=== PATIENT | female | born 1990 | race African-American/Black ===

== ENCOUNTER 2019-11-04 16:25 | Inpatient (IN) | payer BC, OTHER ==
[2019-11-04] MEDS ORDERED: AMPICILLIN SODIUM 2 GM VIAL IVPB ONE (17:00)
[2019-11-04] MEDS ORDERED: ELECTROLYTE-148 SOLN 1,000 ML IV SCH (17:00)
[2019-11-04] MEDS ORDERED: ACETAMINOPHEN 325 MG TABLET (FP) ONE (17:05)
[2019-11-04] MEDS ORDERED: AMPICILLIN SODIUM 2 GM VIAL ONE (17:05)
[2019-11-04 18:14] VITALS: BMI 26.6
--- NOTE | 2019-11-04 18:21 | HP ---
Past Medical History - Primary Care Physician PCP:: Lorelei Wayne - Admission Chief Complaint: Fever. IUP at 40 week History of Present Illness: 28 yo G P EDC 11/03/19 EGA40.1 wk admitted due to fever and possible flu History Source: Patient, Family Member Limitations to Obtaining History: No Limitations - Past Medical History ...: 3 ...Para: 1 ...Term: 1 ...Induced : 1 ...LMP: 02/10/19 ...EDC by Sono: 11/03/19 - Past Surgical History Past Surgical History: Yes: None Hx Myomectomy: No Hx Transabdominal Cerclage: No - Smoking History Smoking history: Never smoked Have you smoked in the past 12 months: No - Alcohol/Substance Use Hx Alcohol Use: No History of Substance Use: reports: None - Social History Usual Living Arrangement: Yes: With Spouse History of Recent Travel: No Home Medications - Allergies Allergies/Adverse Reactions: Allergies Allergy/AdvReac Type Severity Reaction Status Date / Time No Known Allergies Allergy Verified 11/04/19 17:36 - Home Medications Home Medications: Ambulatory Orders Vitamins (Sjr) - 1 tab PO DAILY 11/04/19 Review of Systems - Review of Systems Constitutional: reports: Fever Eyes: reports: No Symptoms HENT: reports: No Symptoms Neck: reports: No Symptoms Cardiovascular: reports: No Symptoms Respiratory: reports: No Symptoms Gastrointestinal: reports: No Symptoms Genitourinary: reports: No Symptoms Breasts: reports: No Symptoms Reported Musculoskeletal: reports: No Symptoms Integumentary: reports: No Symptoms Neurological: reports: No Symptoms Endocrine: reports: No Symptoms Hematology/Lymphatic: reports: No Symptoms Psychiatric: reports: No Symptoms Physical Exam - Maternity Vital Signs: Vital Signs Temperature 102.9 F H 11/04/19 18:06 Pulse Rate 121 H 11/04/19 18:06 Respiratory Rate 22 H 11/04/19 18:06 Blood Pressure 140/71 11/04/19 18:06 O2 Sat by Pulse Oximetry (%) Constitutional: Yes: Well Nourished - Abdominal Exam/OB Category: II Decelerations: None - Vaginal Exam/OB Amniotic Membrane Status: Intact - Physical Exam Musculoskeletal: Yes: WNL Extremities: Yes: WNL Edema: No Hemorrhage Risk Assessment - Risk Factors Risk Score: 0 Risk Level: Low Risk Problem List - Problems (1) 40 weeks gestation of Problems reviewed: Yes Code(s): Z3A.40 - 40 WEEKS GESTATION OF (2) Fever Problems reviewed: Yes Code(s): R50.9 - FEVER, UNSPECIFIED (3) Influenza A Problems reviewed: Yes Code(s): J10.1 - FLU DUE TO OTH IDENT INFLUENZA VIRUS W OTH RESP MANIFEST Assessment/Plan IUP at 40 weeks fever Influenza A Cat 2 Plan ID consult urine culture and sens blood clture IV fluids Admit Tylenol Q4
[2019-11-04 18:48] LABS: BASO % 0.3 % (0-2.0); EOS % 0.2 % (0-4.5); HEMATOCRIT 29.7 % (32.4-45.2); HEMOGLOBIN 9.4 GM/dL (10.7-15.3); MCH 22.2 pg (25.7-33.7); MCHC 31.7 g/dl (32.0-36.0); MEAN PLT VOLUME 11.7 fl (7.5-11.1); NEUT % 83.5 % (42.8-82.8); PLATELET COUNT 145 K/MM3 (134-434); RBC 4.24 M/mm3 (3.60-5.2); RDW 15.2 % (11.6-15.6); WHITE BLOOD COUNT 7.8 K/mm3 (4.0-10.0)
[2019-11-04 19:02] LABS: PROTHROMBIN TIME (PATIENT) 11.8 SEC (9.7-13.0)
[2019-11-04] MEDS: ELECTROLYTE-148 SOLN 1,000 ML IV SCH ×2 (19:03→21:00)
[2019-11-04 19:05] LABS: ACTIVATED PTT 29.9 SECONDS (25.2-36.5)
[2019-11-04 19:13] LABS: BLOOD UREA NITROGEN 12.6 mg/dL (7-18); CALCIUM 8.4 mg/dL (8.5-10.1); CREATININE 0.5 mg/dL (0.55-1.3)
--- NOTE | 2019-11-04 19:49 | CON.ID ---
Consult - History of Present Illness History of Present Illness: 28 y.o. female at 40 wks gestation presents with c/o fever x 1 day. Pt states she began developing " a cold" one week ago with dry cough, rhinorrhea, and nasal congestion which did not resolve. Now she is having persistent fever, chills, and weakness. Noted to have fevers >102F since admission with tachycardia and mild tachypnea. C/O chest discomfort when she coughs but denies SOB. Influenza A testing is +. She denies headache/neck stiffness, abd pain/n/v/ d, urinary f/u/d, rash. No recent travel history. 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 - History Source History Provided By: Patient Limitations to Obtaining History: No Limitations - Past Medical History OPERATIONS DEVELOPER: No: Alzheimer's, CVA, Dementia, Migraine, Multiple Sclerosis, Peripheral Neuropathy, Parkinson's, Seizure, Syncope, TIA, Vertigo, Other Cardio/Vascular: No: AFIB, Aneurysm, Aortic Insufficiency, Aortic Stenosis, CAD , CHF, Deep Vein Thrombosis, HTN, Hyperlipdemia, NE, Mitral Insufficiency, Mitral Stenosis, Murmur, Pulmonary Hypertension, Other Pulmonary: No: Asthma, Bronchitis, Cancer, COPD, O2 Dependent, Pneumonia, Previously Intubated, Pulmonary Embolus, Pulmonary Fibrosis, Sleep Apnea, Other Gastrointestinal: No: Ascites, Cancer, Constipation, Crohn's Disease, Diverticulitis, Diverticulosis, Esophageal Varices, Gastritis, GERD, GI Bleed, Hemorrhoids, Hiatal Hernia, Inflamatory Bowel Disease, Irritable Bowel Disease, Pancreatitis, Peptic Ulcer Disease, Ulcerative Colitis, Other Hepatobiliary: No: Cirrhosis, Cholelithiasis, Cholecystitis, Choledocholithiasis , Hepatitis A, Hepatitis B, Hepatitis C, Other Renal/: No: Renal Failure, Renal Inusuff, BPH, Cancer, Hematuria, Hemodialysis , Neurogenic Bladder, Renal Calculi, UTI, Other Reproductive: No: Ectopic , Endometriosis, Fibroids, PID, Polycystic Ovary Syndrome, Postmenopausal, Other ...: 3 ...Para: 1 - Alcohol/Substance Use Hx Alcohol Use: No - Smoking History Smoking history: Never smoked - Social History History of Recent Travel: No Home Medications - Allergies Allergies/Adverse Reactions: Allergies Allergy/AdvReac Type Severity Reaction Status Date / Time No Known Allergies Allergy Verified 11/04/19 17:36 - Home Medications Home Medications: Ambulatory Orders Vitamins (Sjr) - 1 tab PO DAILY 11/04/19 Review of Systems - Review of Systems Constitutional: reports: Chills, Fever, Weakness. denies: No Symptoms, Diaphoresis, Lethargy, Loss of Appetite, Malaise, Night Sweats, Unintentional Wgt. Loss, Other Eyes: reports: No Symptoms. denies: Blind Spots, Blurred Vision, Double Vision , Eye Pain, Floaters, Photophobia, Recent Change in Vision, Other HENT: reports: Nasal Congestion, Throat Pain. denies: No Symptoms, Difficult Swallowing, Ear Discharge, Ear Pain, Epistaxis, Gingival Bleeding, Hearing Loss , Mouth Swelling, Ocular Prosthesis, Toothache, Ringing in Ears, Other Neck: reports: No Symptoms. denies: Decreased ROM, Lumps, Pain on Movement, Stiffness, Swollen Glands, Tenderness, Other Cardiovascular: reports: No Symptoms. denies: Chest Pain, Edema, Palpitations, Shortness of Breath, Other Respiratory: reports: Cough (dry). denies: No Symptoms, Exercise Intolerance, Hemoptysis, Orthopnea, PND, Snoring, SOB, SOB on Exertion, Wheezing, Other Gastrointestinal: denies: No Symptoms, Abdominal Pain, Bloating, Constipation, Diarrhea, Dysphagia, Indigestion, Melena, Nausea, Rectal Bleeding, Vomiting, Vomiting Blood, Other Genitourinary: reports: No Symptoms. denies: Burning, Discharge, Dysuria, Flank Pain, Frequency, Hematuria, Incontinence, Lesions, Menses, Pain, Testicular Mass, Testicular Pain, Testicular Swelling, Urgency, Vaginal Bleeding , Other Breasts: denies: No Symptoms Reported, See HPI, Breast Implants, Discharge from Nipple, Lumps, Pain, Skin Changes, Other Musculoskeletal: reports: No Symptoms. denies: Back Pain, Crepitus, Decreased ROM, Extremity Pain, Joint Pain, Joint Swelling, Muscle Pain, Muscle Cramps, Muscle Weakness, Other Integumentary: reports: No Symptoms. denies: Blister, Bruising, Change in Color , Eczema, Erythema, Incision, Lesions, Lump, Pallor, Pruritis, Rash, Wound, Other Neurological: reports: No Symptoms. denies: Change in LOC, Change in Speech, Confusion, Dizziness, Headache, Incoordination, Numbness, Parasthesia, Pre- Existing Deficit, Seizure, Syncope, Tremors, Unsteady Gait, Weakness, Other Endocrine: reports: No Symptoms. denies: Excessive Sweating, Flushing, Increased Hunger, Increased Thirst, Intolerance to Cold, Intolerance to Heat, Unexplained Weight Gain, Unexplained Weight Loss, Other Hematology/Lymphatic: reports: No Symptoms. denies: Easily Bruised, Excessive Bleeding, Swollen Glands, Other Psychiatric: denies: No Symptoms, Altered Sleep Pattern, Anxiety, Depression, Hallucinations, Panic, Paranoia, Suicidal, Other Physical Exam Vital Signs: Vital Signs Temperature 101.1 F H 11/04/19 18:40 Pulse Rate 119 H 11/04/19 18:40 Respiratory Rate 20 11/04/19 18:40 Blood Pressure 135/59 L 11/04/19 18:40 O2 Sat by Pulse Oximetry (%) Constitutional: Yes: Mild Distress Eyes: Yes: Conjunctiva Clear, EOM Intact, PERRL HENT: Yes: Atraumatic, Nasal Congestion Neck: Yes: Supple, Trachea Midline Cardiovascular: Yes: Tachycardia Respiratory: Yes: CTA Bilaterally Gastrointestinal: Yes: Normal Bowel Sounds, Soft Renal/: Yes: WNL Musculoskeletal: Yes: WNL Extremities: Yes: WNL Peripheral Pulses WNL: Yes Integumentary: Yes: WNL Neurological: Yes: Alert, Oriented Psychiatric: Yes: Alert Labs: CBC, BMP 11/04/19 18:20 11/04/19 18:20 Laboratory Tests 11/04/19 11/04/19 11/04/19 17:20 17:20 18:20 WBC 7.8 RBC 4.24 Hgb 9.4 L Hct 29.7 L MCV 70.0 L MCH 22.2 L MCHC 31.7 L RDW 15.2 Plt Count 145 MPV 11.7 H Absolute Neuts (auto) 6.5 Neutrophils % 83.5 H Lymphocytes % 8.0 Monocytes % 8.0 Eosinophils % 0.2 Basophils % 0.3 Nucleated RBC % 0 PT with INR INR PTT (Actin FS) Sodium Potassium Chloride Carbon Dioxide Anion Gap BUN Creatinine Est GFR (CKD-EPI)AfAm Est GFR (CKD-EPI)NonAf Random Glucose Calcium HIV 1&2 Antibody Screen HIV P24 Antigen Influenza A (Rapid) Positive A Influenza B (Rapid) Negative RSV Rapid Negative Blood Type Antibody Screen 11/04/19 11/04/19 11/04/19 18:20 18:20 18:20 WBC RBC Hgb Hct MCV MCH MCHC RDW Plt Count MPV Absolute Neuts (auto) Neutrophils % Lymphocytes % Monocytes % Eosinophils % Basophils % Nucleated RBC % PT with INR 11.80 INR 1.00 PTT (Actin FS) 29.9 Sodium 138 Potassium 4.0 Chloride 108 H Carbon Dioxide 22 Anion Gap 8 BUN 12.6 Creatinine 0.5 L Est GFR (CKD-EPI)AfAm 153.73 Est GFR (CKD-EPI)NonAf 132.64 Random Glucose 85 Calcium 8.4 L HIV 1&2 Antibody Screen HIV P24 Antigen Influenza A (Rapid) Influenza B (Rapid) RSV Rapid Blood Type A POSITIVE Antibody Screen Negative 11/04/19 18:20 WBC RBC Hgb Hct MCV MCH MCHC RDW Plt Count MPV Absolute Neuts (auto) Neutrophils % Lymphocytes % Monocytes % Eosinophils % Basophils % Nucleated RBC % PT with INR INR PTT (Actin FS) Sodium Potassium Chloride Carbon Dioxide Anion Gap BUN Creatinine Est GFR (CKD-EPI)AfAm Est GFR (CKD-EPI)NonAf Random Glucose Calcium HIV 1&2 Antibody Screen Negative HIV P24 Antigen Negative Influenza A (Rapid) Influenza B (Rapid) RSV Rapid Blood Type Antibody Screen Problem List - Problems (1) 40 weeks gestation of Code(s): Z3A.40 - 40 WEEKS GESTATION OF (2) Fever Code(s): R50.9 - FEVER, UNSPECIFIED Assessment/Plan 28 y.o. female at 40 wks gestation presents with c/o fever x 1 day. Pt states she began developing " a cold" one week ago with dry cough, rhinorrhea, and nasal congestion which did not resolve. Now with persistent fevers. Influenza Fever - 40 wks -- Tamiflu started, empirically on Ampicillin -- send u/a, urine and blood cultures -- continue monitor temp trend/ vitals closely -- in isolation Will follow Thank you
[2019-11-04] MEDS ORDERED: OSELTAMIVIR PHOSPHATE 75 MG CAPSULE PO SCH (20:00)
[2019-11-04] MEDS: OSELTAMIVIR PHOSPHATE 75 MG CAPSULE PO SCH (20:15)
[2019-11-04] MEDS ORDERED: ACETAMINOPHEN INJECTION 100 ML IVPB ONE (21:12)
[2019-11-04] MEDS: ACETAMINOPHEN 1000 MG/100 ML VIAL (NON FORMULARY) IVPB PRN (21:20)
[2019-11-04] MEDS: AMPICILLIN SODIUM 1 GM VIAL IVPB SCH (21:30)
[2019-11-04 22:16] LABS: PH,URINE 6.5 (5.0-8.0); URINE APPEARANCE CLEAR; URINE BILIRUBIN NEGATIVE (NEGATIVE); URINE COLOR YELLOW; URINE GLUCOSE (UA) NEGATIVE (NEGATIVE); URINE KETONE 2+ (NEGATIVE); URINE LEUK ESTERASE NEGATIVE (NEGATIVE); URINE NITRITE NEGATIVE (NEGATIVE); URINE PROTEIN TRACE (NEGATIVE)
[2019-11-04] MEDS ORDERED: AMPICILLIN SODIUM 1 GM VIAL ONE (22:19)
[2019-11-05] MEDS ORDERED: AMPICILLIN SODIUM 1 GM VIAL ONE ×6 (00:53→20:22)
[2019-11-05] MEDS: AMPICILLIN SODIUM 1 GM VIAL IVPB SCH ×6 (01:00→21:00)
[2019-11-05] MEDS: ACETAMINOPHEN 1000 MG/100 ML VIAL (NON FORMULARY) IVPB PRN ×3 (03:15→19:40)
[2019-11-05] MEDS ORDERED: ACETAMINOPHEN INJECTION 100 ML IVPB ONE ×3 (03:16→19:37)
[2019-11-05] MEDS: ELECTROLYTE-148 SOLN 1,000 ML IV SCH ×2 (07:36→17:25)
[2019-11-05] MEDS: OSELTAMIVIR PHOSPHATE 75 MG CAPSULE PO SCH ×2 (08:15→21:55)
[2019-11-05 09:17] LABS: BASO % 0.2 % (0-2.0); HEMATOCRIT 29.9 % (32.4-45.2); HEMOGLOBIN 9.5 GM/dL (10.7-15.3); LYMPH % 10.9 % (8-40); MCH 22.1 pg (25.7-33.7); MCHC 31.7 g/dl (32.0-36.0); MEAN CELL VOLUME 69.6 fl (80-96); MEAN PLT VOLUME 11.4 fl (7.5-11.1); MONO % 10.1 % (3.8-10.2); NEUT % 78.8 % (42.8-82.8); RBC 4.29 M/mm3 (3.60-5.2); RDW 15.2 % (11.6-15.6); RETICULOCYTES 1.17 % (0.5-1.5); WHITE BLOOD COUNT 6.5 K/mm3 (4.0-10.0)
[2019-11-05 09:30] LABS: URIC ACID 4.3 mg/dL (2.6-7.2)
[2019-11-05 11:02] LABS: PLATELET ESTIMATE DECREASED
--- NOTE | 2019-11-05 11:39 | PN ---
Ante-Partal Exam - Subjective Subjective: Pt improving Vital Signs: Vital Signs Temperature 99.4 F 11/05/19 11:00 Pulse Rate 108 H 11/05/19 10:00 Respiratory Rate 18 11/05/19 11:00 Blood Pressure 120/76 11/05/19 11:00 O2 Sat by Pulse Oximetry (%) Bleeding: No Headache: No Visual changes: No Right upper quadrant pain: No - Contractions Contractions: Yes Regularity: Irritability Intensity: Mild Monitor Mode: External - Exam during Labor Heart Rate: 140 Variability: Moderate Heart Rate Location: [facility] Category: I Monitor Accelerations: Present Monitor Decelerations: None Exam: Vaginal Dilatation (cm): 2 Effacement (%): 50 Amniotic Membrane Status: Intact Presentation: Vertex Station: 0 - Intrapartum Hemorrhage Risk Risk Score: 0 Risk Level: Low Risk - Assessment/Plan Assessment/Plan: Cat 1 Influenza - improving low grade temp Plan tamiflu continue tylenol continue observation ID monitoring will induce in 5-7 days
[2019-11-05 11:41] LABS: PLATELET COUNT 139 K/MM3 (134-434)
--- NOTE | 2019-11-05 15:45 | PN ---
Progress Note, Physician History of Present Illness: stable starting to feel better - Current Medication List Current Medications: Active Medications Acetaminophen (Ofirmev Injection -) 1,000 mg IVPB Q6H PRN PRN Reason: FEVER Last Admin: 11/05/19 12:40 Dose: 1,000 mg Ampicillin Sodium (Ampicillin -) 1 gm IVPB Q4H [facility] Last Admin: 11/05/19 13:20 Dose: 1 gm Parenteral Electrolytes (Plasma-Lyte 148 -) 1,000 mls @ 125 mls/hr IV ASDIR ANGELI Last Admin: 11/05/19 07:36 Dose: 125 mls/hr Oseltamivir Phosphate (Tamiflu -) 75 mg PO Q12H [facility] Stop: 11/09/19 19:39 Last Admin: 11/05/19 08:15 Dose: 75 mg - Objective Vital Signs: Vital Signs Temperature 97.9 F 11/05/19 14:00 Pulse Rate 96 H 11/05/19 14:00 Respiratory Rate 18 11/05/19 14:00 Blood Pressure 124/61 11/05/19 14:00 O2 Sat by Pulse Oximetry (%) Constitutional: Yes: No Distress, Calm Cardiovascular: Yes: S1, S2 Respiratory: Yes: Regular, CTA Bilaterally Gastrointestinal: Yes: Normal Bowel Sounds, Soft Musculoskeletal: Yes: WNL Extremities: Yes: WNL Neurological: Yes: Alert, Oriented Psychiatric: Yes: Alert, Oriented Labs: CBC, BMP 11/05/19 08:50 11/04/19 18:20 INR, PTT INR 1.00 (0.83-1.09) 11/04/19 18:20 Assessment/Plan Problem List - Problems (1) 40 weeks gestation of Code(s): Z3A.40 - 40 WEEKS GESTATION OF (2) Fever Code(s): R50.9 - FEVER, UNSPECIFIED Assessment/Plan 28 y.o. female at 40 wks gestation presents with c/o fever x 1 day. Pt states she began developing " a cold" one week ago with dry cough, rhinorrhea, and nasal congestion which did not resolve. Now with persistent fevers. Influenza Fever - 40 wks continue current mgmt complete tamiflu course if patient stable can stop abx
[2019-11-06] MEDS ORDERED: AMPICILLIN SODIUM 1 GM VIAL ONE ×2 (00:46→04:07)
[2019-11-06] MEDS: AMPICILLIN SODIUM 1 GM VIAL IVPB SCH ×3 (01:00→10:47)
[2019-11-06] MEDS: ELECTROLYTE-148 SOLN 1,000 ML IV SCH (04:00)
[2019-11-06 06:51] LABS: BASO % 0.7 % (0-2.0); EOS % 0.2 % (0-4.5); HEMATOCRIT 31.5 % (32.4-45.2); HEMOGLOBIN 9.9 GM/dL (10.7-15.3); LYMPH % 25.4 % (8-40); MCHC 31.3 g/dl (32.0-36.0); MEAN CELL VOLUME 70.3 fl (80-96); MEAN PLT VOLUME 11.4 fl (7.5-11.1); MONO % 8.2 % (3.8-10.2); NEUT % 65.5 % (42.8-82.8); PLATELET COUNT 138 K/MM3 (134-434); RBC 4.49 M/mm3 (3.60-5.2); RDW 15.2 % (11.6-15.6); WHITE BLOOD COUNT 4.3 K/mm3 (4.0-10.0)
[2019-11-06] MEDS: OSELTAMIVIR PHOSPHATE 75 MG CAPSULE PO SCH (08:15)
[2019-11-06] MEDS ORDERED: ACETAMINOPHEN 325 MG TABLET (FP) PO PRN (09:26)
[2019-11-06 09:52] LABS: ANISOCYTOSIS 1+; MACROCYTOSIS 0; PLATELET ESTIMATE NORMAL
--- NOTE | 2019-11-06 17:37 | PN ---
Progress Note, Physician History of Present Illness: stable no new issues - Current Medication List Current Medications: Active Medications Acetaminophen (Tylenol -) 650 mg PO Q4H PRN PRN Reason: FEVER Parenteral Electrolytes (Plasma-Lyte 148 -) 1,000 mls @ 125 mls/hr IV ASDIR ANGELI Last Admin: 11/06/19 04:00 Dose: 125 mls/hr Oseltamivir Phosphate (Tamiflu -) 75 mg PO Q12H [facility] Stop: 11/09/19 19:39 Last Admin: 11/06/19 08:15 Dose: 75 mg - Objective Vital Signs: Vital Signs Temperature 98.0 F 11/06/19 11:35 Pulse Rate 84 11/06/19 11:35 Respiratory Rate 20 11/06/19 11:35 Blood Pressure 132/84 11/06/19 11:35 O2 Sat by Pulse Oximetry (%) Constitutional: Yes: No Distress, Calm Cardiovascular: Yes: S1, S2 Respiratory: Yes: Regular, CTA Bilaterally Gastrointestinal: Yes: Normal Bowel Sounds, Soft Musculoskeletal: Yes: WNL Extremities: Yes: WNL Neurological: Yes: Alert, Oriented Psychiatric: Yes: Alert, Oriented Labs: CBC, BMP 11/06/19 06:20 11/04/19 18:20 INR, PTT INR 1.00 (0.83-1.09) 11/04/19 18:20 Assessment/Plan Problem List - Problems (1) 40 weeks gestation of Code(s): Z3A.40 - 40 WEEKS GESTATION OF (2) Fever Code(s): R50.9 - FEVER, UNSPECIFIED Assessment/Plan 28 y.o. female at 40 wks gestation presents with c/o fever x 1 day. Pt states she began developing " a cold" one week ago with dry cough, rhinorrhea, and nasal congestion which did not resolve. Now with persistent fevers. Influenza Fever - 40 wks plan no abx finish tamiflu course
[2019-11-06 18:54] VITALS: BP 120/84; PULSE 72; TEMP 98.4
--- NOTE | 2019-11-21 22:08 | DS ---
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 Vital Signs: Vital Signs Temperature 98.4 F 11/06/19 18:00 Pulse Rate 72 11/06/19 18:00 Respiratory Rate 20 11/06/19 18:00 Blood Pressure 120/84 11/06/19 18:00 O2 Sat by Pulse Oximetry (%) Constitutional: Yes: Well Nourished, No Distress Gastrointestinal: Yes: WNL, Soft, Other ( 40 cm) Breast(s): Yes: WNL Labs: CBC, BMP 11/06/19 06:20 11/04/19 18:20 Delivery, Single - Feeding Plan Initial Plan: Elected not to breastfeed exclusively throughout hospitalization Discharge Summary Problems reviewed: Yes Reason For Visit: INDUCTION OF LABOR Influenza A Fever Procedures: Principal: IV fluids Hospital Course: IV Fluids Tylenol Tamaflu Condition: Good - Instructions Diet, Activity, Other Instructions: PT INSTRUCTED TO CALL MD IF FEVER, VAGINAL BLEEDING, UTERINE CONTRATIONS, DECREASED MOVEMENT, OR WATER BREAKS. PT ALSO INSTRUCTED TO RETURN TO L&D ON Tuesday11/11/19 FOR INDUCTION OF LABOR IF UNDELIVERED. PT TO TAKE TAMIFLU PRESCRIBED BY DR WAYNE. Referrals: Lorelei Wayne MD [Staff Physician] - Disposition: HOME - Home Medications Comprehensive Discharge Medication List: Ambulatory Orders Vitamins (Sjr) - 1 tab PO DAILY 11/04/19 Ascorbic Acid [Vitamin C] 500 mg PO PRN 11/09/19 Labetalol HCl [Normodyne -] 200 mg PO TID #60 tablet 11/12/19 Nifedipine ER [Procardia Xl -] 30 mg PO DAILY #30 tab.er.24 11/12/19
== END 2019-11-06 19:05 | disposition home or self-care (01) | DRG 833 ==
LOC: JLDR 16:25 → J3W 11-06 11:17
PROVIDERS: ADMIT Obstetrics & Gynecology; ATTEND Obstetrics & Gynecology
DX: O98.513 Other viral diseases complicating pregnancy, third trimester (principal); J10.1 Influenza due to other identified influenza virus with other respiratory manifestations
CPT/HCPCS: 36415; 80048; 81003; 84450; 84460; 84550; 85025; 85044; 85610; 85730; 86593; 86850; 86900; 86901; 87040; 87086; 87389; 87804; 87807; J0131

== ENCOUNTER 2019-11-09 10:55 | Inpatient (IN) | payer BC, OTHER ==
[2019-11-09 12:25] LABS: BASO % 0.7 % (0-2.0); EOS % 0.4 % (0-4.5); HEMATOCRIT 35.4 % (32.4-45.2); HEMOGLOBIN 11.2 GM/dL (10.7-15.3); LYMPH % 19.3 % (8-40); MCH 22.2 pg (25.7-33.7); MCHC 31.6 g/dl (32.0-36.0); MEAN CELL VOLUME 70.2 fl (80-96); MEAN PLT VOLUME 11.4 fl (7.5-11.1); MONO % 5.7 % (3.8-10.2); NEUT % 73.9 % (42.8-82.8); PLATELET COUNT 186 K/MM3 (134-434); RBC 5.04 M/mm3 (3.60-5.2); RDW 15.1 % (11.6-15.6); WHITE BLOOD COUNT 9.2 K/mm3 (4.0-10.0)
[2019-11-09 12:29] LABS: INR 0.85 (0.83-1.09)
[2019-11-09 12:32] LABS: ACTIVATED PTT 32.6 SECONDS (25.2-36.5)
[2019-11-09] MEDS ORDERED: PROMETHAZINE HCL 25 MG/1 ML VIAL IVPUSH ONE (12:34)
[2019-11-09] MEDS ORDERED: BUTORPHANOL TARTRATE 1 MG/ML VIAL IVPB ONE (12:34)
--- NOTE | 2019-11-09 12:34 | HP ---
Past Medical History - Primary Care Physician PCP:: Lorelei Wayne - Admission Chief Complaint: Labor at 40 + week. Hx of influenza History of Present Illness: 28 yo P1 egg 40. 6 weeks admitted in active labor no rom no bleeding + abd due to contractions History Source: Patient Limitations to Obtaining History: No Limitations - Past Medical History ...: 2 ...Para: 1 - Past Surgical History Past Surgical History: Yes: None Hx Myomectomy: No Hx Transabdominal Cerclage: No - Smoking History Smoking history: Never smoked Have you smoked in the past 12 months: No - Alcohol/Substance Use Hx Alcohol Use: No History of Substance Use: reports: None - Social History Usual Living Arrangement: Yes: With Spouse History of Recent Travel: No Home Medications - Allergies Allergies/Adverse Reactions: Allergies Allergy/AdvReac Type Severity Reaction Status Date / Time No Known Allergies Allergy Verified 11/09/19 13:08 - Home Medications Home Medications: Ambulatory Orders Vitamins (Sjr) - 1 tab PO DAILY 11/04/19 Ascorbic Acid [Vitamin C] 500 mg PO PRN 11/09/19 Review of Systems - Review of Systems Constitutional: reports: No Symptoms Eyes: reports: No Symptoms HENT: reports: No Symptoms Neck: reports: No Symptoms Cardiovascular: reports: No Symptoms Respiratory: reports: No Symptoms Gastrointestinal: reports: Abdominal Pain Genitourinary: reports: No Symptoms Breasts: reports: No Symptoms Reported Musculoskeletal: reports: No Symptoms Integumentary: reports: No Symptoms Neurological: reports: No Symptoms Endocrine: reports: No Symptoms Hematology/Lymphatic: reports: No Symptoms Psychiatric: reports: No Symptoms Physical Exam - Maternity Constitutional: Yes: Well Nourished, No Distress Cardiovascular: Yes: WNL Lungs: Clear to auscultation Breast(s): Yes: WNL - Abdominal Exam/OB Number of Fetuses: Single Presentation: Vertex Contractions: Yes Monitor Mode: External Category: I Accelerations: Non-Uniform Decelerations: None - Vaginal Exam/OB Dilatation (cm): 3 Effacement (%): 80 Amniotic Membrane Status: Intact Presentation: Vertex/Position Station: -1 - Physical Exam Musculoskeletal: Yes: WNL Extremities: Yes: WNL Edema: No Psychiatric: Yes: WNL, Alert, Oriented Hemorrhage Risk Assessment - Risk Factors Risk Score: 0 Risk Level: Low Risk Problem List - Problems (1) Post-dates Problems reviewed: Yes Code(s): O48.0 - POST-TERM Qualifiers: Post-term type: 40-42 weeks gestation Qualified Code(s): O48.0 - Post-term Assessment/Plan IUP at 40. 6 week SP influenza 5 days ago Labor Plan admit to LD
[2019-11-09] MEDS ORDERED: ELECTROLYTE-148 SOLN 1,000 ML IV SCH (12:45)
[2019-11-09 12:49] LABS: BLOOD UREA NITROGEN 12.5 mg/dL (7-18); CALCIUM 8.8 mg/dL (8.5-10.1); CREATININE 0.5 mg/dL (0.55-1.3); POTASSIUM 4.3 mmol/L (3.5-5.1)
[2019-11-09 13:28] VITALS: BMI 26.6
[2019-11-09 14:17] LABS: PLATELET ESTIMATE NORMAL
[2019-11-09] MEDS ORDERED: OXYTOCIN 30 UNITS in 0.9% NS 30 UNIT/500 ML INFUS.BAG IVPB ONE (14:23)
[2019-11-09] MEDS ORDERED: OXYTOCIN 30 UNITS in 0.9% NS 30 UNIT/500 ML INFUS.BAG IVPB SCH (15:00)
[2019-11-09] MEDS ORDERED: NALOXONE HCL 0.4 MG/ML VIAL IVPUSH PRN (15:39)
[2019-11-09] MEDS ORDERED: FENTANYL/BUPIVACAINE/NS/PF - PCEA - 50 ML DISP.SYRIN EP ONE (15:44)
[2019-11-09] MEDS ORDERED: FENTANYL/BUPIVACAINE/NS/PF - PCEA - 50 ML DISP.SYRIN EP SCH ×2 (15:45→16:24)
--- NOTE | 2019-11-09 16:03 | PN ---
Ante-Partal Exam - Subjective Subjective: Pt on pitocin pt desires epidural Vital Signs: Vital Signs Temperature 98.3 F 11/09/19 12:00 Pulse Rate 69 11/09/19 14:30 Respiratory Rate 18 11/09/19 14:30 Blood Pressure 154/88 11/09/19 14:30 O2 Sat by Pulse Oximetry (%) Bleeding: No Headache: No Visual changes: No Right upper quadrant pain: No - Contractions Contractions: Yes Regularity: Regular Monitor Mode: External - Exam during Labor Category: I Monitor Decelerations: None Exam: Vaginal Dilatation (cm): 4 Amniotic Membrane Status: Ruptured Amniotic Fluid: Clear Presentation: Vertex Station: -1 - Assessment/Plan Assessment/Plan: Active labor 40 + weeks Plan epidural
[2019-11-09] MEDS ORDERED: OXYTOCIN 20 UNITS in 0.9% NS 20 UNIT/1,000 ML INFUS.BAG IV ONE ×2 (16:16→20:25)
[2019-11-09] MEDS ORDERED: LIDOCAINE HCL 1% PRESERVATIVE FREE - 30ML VIAL ONE (16:16)
--- NOTE | 2019-11-09 16:21 | PN ---
Ante-Partal Exam - Subjective Vital Signs: Vital Signs Temperature 98.3 F 11/09/19 12:00 Pulse Rate 84 11/09/19 16:00 Respiratory Rate 18 11/09/19 16:00 Blood Pressure 144/90 11/09/19 16:00 O2 Sat by Pulse Oximetry (%) 99 11/09/19 16:00 - Exam during Labor Category: I Monitor Accelerations: Present Monitor Decelerations: None Exam: Vaginal Dilatation (cm): anteri Amniotic Fluid: Clear Presentation: Vertex Station: 0 - Intrapartum Hemorrhage Risk Risk Score: 0 Risk Level: Low Risk - Assessment/Plan Assessment/Plan: Anterior lip active labor Plan anticipate vaginal delivery
[2019-11-09] MEDS ORDERED: BISACODYL 10 MG SUPP.RECT RC PRN (16:22)
[2019-11-09] MEDS ORDERED: WITCH HAZEL 50% (TUCKS) 40 PAD/JAR PAD TP PRN (16:22)
[2019-11-09] MEDS ORDERED: METHYLERGONOVINE MALEATE 0.2 MG/1 ML AMP IM PRN (16:22)
[2019-11-09] MEDS ORDERED: IBUPROFEN 600 MG TABLET (FP) PO PRN (16:22)
[2019-11-09] MEDS ORDERED: BENZOCAINE 20% 57 GM BOTTLE TP PRN (16:22)
[2019-11-09] MEDS ORDERED: BENZOCAINE 28 GM HEMORRHOIDAL OINTMENT PR PRN (16:22)
[2019-11-09] MEDS ORDERED: OXYTOCIN 20 UNITS in 0.9% NS 20 UNIT/1,000 ML INFUS.BAG IV SCH (16:30)
--- NOTE | 2019-11-09 16:59 | PN ---
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
[2019-11-09] MEDS ORDERED: LABETALOL HCL 200 MG TABLET (FP) ONE (17:32)
[2019-11-09] MEDS ORDERED: LABETALOL HCL 200 MG TABLET (FP) PO ONE (18:15)
[2019-11-09] MEDS: LABETALOL HCL 200 MG TABLET (FP) PO SCH (21:04)
[2019-11-09] MEDS: ACETAMINOPHEN 325 MG TABLET (FP) PO PRN (22:19)
[2019-11-10] MEDS: LABETALOL HCL 200 MG TABLET (FP) PO SCH ×3 (05:29→21:19)
[2019-11-10] MEDS: ACETAMINOPHEN 325 MG TABLET (FP) PO PRN ×4 (05:29→20:40)
[2019-11-10 07:40] LABS: BASO % 0.4 % (0-2.0); EOS % 0.1 % (0-4.5); HEMATOCRIT 29.9 % (32.4-45.2); HEMOGLOBIN 9.5 GM/dL (10.7-15.3); LYMPH % 24.9 % (8-40); MCH 22.3 pg (25.7-33.7); MEAN CELL VOLUME 69.9 fl (80-96); NEUT % 67.6 % (42.8-82.8); PLATELET COUNT 131 K/MM3 (134-434); RBC 4.27 M/mm3 (3.60-5.2); RDW 15.2 % (11.6-15.6); WHITE BLOOD COUNT 10.6 K/mm3 (4.0-10.0)
[2019-11-10] MEDS ORDERED: FLU VACCINE QUAD 60 MCG/0.5 ML (MDV 19-20) IM ONE (10:00)
[2019-11-10] MEDS ORDERED: FLU VACC QS2019-20(6MOS UP)/PF 60 MCG/0.5 ML SYRINGE IM ONE (10:00)
[2019-11-10] MEDS ORDERED: DIPHTH,PERTUSS(ACELL),TET 0.5 ML DISP.SYRIN IM ONE (10:00)
[2019-11-10 10:33] LABS: PLATELET ESTIMATE DECREASED
[2019-11-10] MEDS ORDERED: SODIUM CHLORIDE NASAL SPRAY 44 ML BOTTLE NS PRN (15:28)
--- NOTE | 2019-11-10 22:43 | PN ---
Progress Note (SOAP) - Subjective Chief Complaint: Pt doing well Pt with elevated BP on Labetalol 200mg TID - Current Medications Current Medications: Active Medications Acetaminophen (Tylenol -) 650 mg PO Q4H PRN PRN Reason: FEVER Last Admin: 11/10/19 20:40 Dose: 650 mg Benzocaine (Americaine 20% [place] -) 1 spray TP PRN PRN PRN Reason: Pain - Topical Benzocaine (Americaine Ointment -) 1 applic DE PRN PRN PRN Reason: Pain - Topical Bisacodyl (Dulcolax Suppository -) 10 mg RC PRN PRN PRN Reason: CONSTIPATION Fentanyl/Bupivacaine/Sodium Chlor (Bupivicaine 0.125%/Fentanyl 2mcg/Ml Pcea) 50 ml EP [facility]; Protocol Last Admin: 11/09/19 17:26 Dose: Not Given Parenteral Electrolytes (Plasma-Lyte 148 -) 1,000 mls @ 125 mls/hr IV [facility]IR [facility] Last Admin: 11/09/19 13:00 Dose: 125 mls/hr Oxytocin/Sodium Chloride (Normal Saline+30 Units Oxytocin) 30 unit in 500 mls @ 1 mls/hr IVPB TITR [facility]; Protocol Last Titration: 11/09/19 15:50 Dose: 0.18 unit/hr, 3 mls/hr Oxytocin/Sodium Chloride (Normal Saline+20 Units Oxytocin -) 20 unit in 1,000 mls @ 125 mls/hr IV ASDIR ANGELI Last Admin: 11/09/19 17:26 Dose: 125 mls/hr Ibuprofen (Motrin -) 600 mg PO Q4H PRN PRN Reason: PAIN LEVEL 1 - 3 Labetalol HCl (Normodyne -) 200 mg PO TID ANGELI Last Admin: 11/10/19 21:19 Dose: 200 mg Methylergonovine Maleate (Methergine Injection -) 0.2 mg IM Q4H PRN PRN Reason: EXCESSIVE BLEEDING Naloxone HCl (Narcan -) 0.4 mg IVPUSH PRN PRN PRN Reason: Sedation Sodium Chloride ([place] Nasal [place] -) 1 spray NS BID PRN PRN Reason: NASAL CONGESTION Last Admin: 11/10/19 22:11 Dose: 1 spray Witch Aruna/Glycerin (Tucks Pads -) 1 pad TP PRN PRN PRN Reason: Pain - Topical - Objective Vital Signs: Vital Signs Temperature 98.1 F 11/10/19 21:23 Pulse Rate 69 11/10/19 21:23 Respiratory Rate 20 11/10/19 21:23 Blood Pressure 155/98 11/10/19 21:23 O2 Sat by Pulse Oximetry (%) 100 11/09/19 17:15 Constitutional: Yes: Well Nourished, No Distress Gastrointestinal: Yes: WNL, Soft ....Post : Yes: Uterus firm, Uterus non-tender Breast(s): Yes: WNL Extremities: Yes: WNL Edema: No Neurological: Yes: WNL, Alert, Oriented Labs Lab Results: CBCD WBC 10.6 K/mm3 (4.0-10.0) H 11/10/19 07:25 RBC 4.27 M/mm3 (3.60-5.2) 11/10/19 07:25 Hgb 9.5 GM/dL (10.7-15.3) L 11/10/19 07:25 Hct 29.9 % (32.4-45.2) L D 11/10/19 07:25 MCV 69.9 fl (80-96) L 11/10/19 07:25 MCHC 32.0 g/dl (32.0-36.0) 11/10/19 07:25 RDW 15.2 % (11.6-15.6) 11/10/19 07:25 Plt Count 131 K/MM3 (134-434) L D 11/10/19 07:25 MPV 11.0 fl (7.5-11.1) 11/10/19 07:25 CMP Sodium 140 mmol/L (136-145) 11/09/19 11:37 Potassium 4.3 mmol/L (3.5-5.1) 11/09/19 11:37 Chloride 110 mmol/L (98-107) H 11/09/19 11:37 Carbon Dioxide 23 mmol/L (21-32) 11/09/19 11:37 Anion Gap 7 MMOL/L (8-16) L 11/09/19 11:37 BUN 12.5 mg/dL (7-18) 11/09/19 11:37 Creatinine 0.5 mg/dL (0.55-1.3) L 11/09/19 11:37 Random Glucose 73 mg/dL (74-106) L 11/09/19 11:37 Calcium 8.8 mg/dL (8.5-10.1) 11/09/19 11:37 Problem List - Problems (1) Post-dates Problems reviewed: Yes Code(s): O48.0 - POST-TERM Qualifiers: Post-term type: 40-42 weeks gestation Qualified Code(s): O48.0 - Post-term (2) NVD (normal vaginal delivery) Code(s): O80 - ENCOUNTER FOR FULL-TERM UNCOMPLICATED DELIVERY (3) Gestational hypertension Code(s): O13.9 - GESTATIONAL HTN W/O SIGNIFICANT PROTEINURIA, UNSP TRIMESTER Assessment/Plan SP gestational hypertension Plan labetalol 200 mg TID renal consult PET labs in AM
[2019-11-11] MEDS: ACETAMINOPHEN 325 MG TABLET (FP) PO PRN ×4 (00:59→17:54)
[2019-11-11] MEDS: LABETALOL HCL 200 MG TABLET (FP) PO SCH ×3 (05:49→22:19)
[2019-11-11 07:50] LABS: RETICULOCYTES 1.61 % (0.5-1.5)
[2019-11-11 08:12] LABS: URIC ACID 5.6 mg/dL (2.6-7.2)
--- NOTE | 2019-11-11 10:44 | CON.NEP ---
Consult Consult Specialty:: Nephrology Reason for Consultation:: Gestational Hypertension - History of Present Illness Chief Complaint: none History of Present Illness: This is a 28 year old woman with no significant medical history who was induced and delivered on 11/09. She does not have a history of hypertension but has had blood pressures above 160 requiring labetalol. She had the flu recently but did not take any decongestants. Currently feels well. This is her second full term . - History Source Limitations to Obtaining History: No Limitations - Past Surgical History Past Surgical History: Yes: None - Alcohol/Substance Use Hx Alcohol Use: No History of Substance Use: reports: None - Smoking History Smoking history: Never smoked Have you smoked in the past 12 months: No - Social History History of Recent Travel: No Home Medications - Allergies Allergies/Adverse Reactions: Allergies Allergy/AdvReac Type Severity Reaction Status Date / Time No Known Allergies Allergy Verified 11/09/19 13:08 - Home Medications Home Medications: Ambulatory Orders Vitamins (Sjr) - 1 tab PO DAILY 11/04/19 Ascorbic Acid [Vitamin C] 500 mg PO PRN 11/09/19 Review of Systems - Review of Systems Constitutional: reports: No Symptoms Eyes: reports: No Symptoms HENT: reports: No Symptoms Neck: reports: No Symptoms Cardiovascular: reports: No Symptoms Respiratory: reports: No Symptoms Gastrointestinal: reports: No Symptoms Genitourinary: reports: No Symptoms Breasts: reports: No Symptoms Reported Musculoskeletal: reports: No Symptoms Integumentary: reports: No Symptoms Neurological: reports: No Symptoms Nephrology Consult - Height Height: 5 ft 7 in - Weight Weight: 170 lb - BMI Body Mass Index (BMI): 26.6 - Lab Results CBC,BMP: CBC, BMP 11/09/19 11:37 Anion Gap: Anion Gap Anion Gap 7 MMOL/L (8-16) L 11/09/19 11:37 - Physical Examination Vital Signs: Vital Signs Temperature 98.1 F 11/11/19 05:55 Pulse Rate 57 L 11/11/19 05:55 Respiratory Rate 20 11/11/19 05:55 Blood Pressure 161/93 11/11/19 05:55 O2 Sat by Pulse Oximetry (%) 100 11/09/19 17:15 Constitutional: Yes: Well Nourished, No Distress, Calm Eyes: Yes: Conjunctiva Clear HENT: Yes: Atraumatic, Normocephalic Neck: Yes: Supple, Trachea Midline Cardiovascular: Yes: Regular Rate and Rhythm Respiratory: Yes: Regular, CTA Bilaterally Gastrointestinal: Yes: Normal Bowel Sounds Renal/: Yes: WNL Musculoskeletal: Yes: WNL Edema: Yes Neurological: Yes: Alert, Oriented Psychiatric: Yes: Alert, Oriented Assessment/Plan IMPRESSION Gestational Hypertension- has a normal creat and only trace proteinuria anemia post delivery- bleeding vs dilution mild thrombocytopenia PLAN Recent BP was reported to be in the 140's over 80s while on labetalol for now would not add medications would repeat cbc today to ensure her hgb is not dropping also repeat urine tests- for proteinuria If BP remains elevated would add nifedipine xl 30 mg daily await haptoglobin, LFTs only mildly elevated If not hemolyzing, BP around or below 140/90 and platelets stable can consider dc from renal perspective MV
[2019-11-11 11:27] LABS: HEMATOCRIT 31.1 % (32.4-45.2); HEMOGLOBIN 9.9 GM/dL (10.7-15.3); MCH 22.2 pg (25.7-33.7); MCHC 31.7 g/dl (32.0-36.0); RBC 4.45 M/mm3 (3.60-5.2); RDW 15.2 % (11.6-15.6); WHITE BLOOD COUNT 8.5 K/mm3 (4.0-10.0)
[2019-11-11 11:30] LABS: PLATELET COUNT 138 K/MM3 (134-434)
[2019-11-11 11:31] LABS: PLATELET ESTIMATE SLT DECREASE
[2019-11-11] MEDS: NIFEdipine E.R. 30 MG TABLET (FP) PO SCH (11:47)
[2019-11-11 13:47] LABS: MEAN PLT VOLUME 10.3 fl (7.5-11.1)
--- NOTE | 2019-11-11 18:30 | PN ---
Progress Note (short form) - Note Progress Note: pt c/o of severe headache x 1 hour, bp is up and down 140/90, 166/100 range, on bp medications of labetolol and procarida today, bp s were 140/90 range , only a few 160 /100 ranges, headache just started today . will ask ansthesiologist to evaluate her for headache. i do not think headache are from high bp or pre eclampsia. will possible ask for re patch of epidural, and fiorcet for headache .
[2019-11-11] MEDS: ACETAMINOPHEN/CAFFEINE/BUTALBITAL 1 TAB PO PRN ×2 (18:38→22:19)
--- NOTE | 2019-11-11 19:24 | PN ---
Progress Note (short form) - Note Progress Note: Anesthesiologist, Was asked to evaluate the patient for her headache. S/P Vaginal delivery, POD#2, with labor epidural. No wet tap reported. Epidural was placed without any difficulties reported. Pat is diagnosed with gestational induced hypertension. On Labetolol, added Procardia by consulting plant health care technician to control blood pressure. Pat c/o headache 1-2 hours ago. No problem ambulating. Describes headache all over the head, some neck pain at sides. no limitation in neck movement. No nausea or vomiting, not positional, possible worse when lying down. No blurred vision, No weakness in extremities reported. No back pain. PE: sitting in a chair, holding her head. VSS. Afebrile.AAOX3. Gross neurology intact. Assessment: Gestational hypertension. Neither dura puncture reported nor the symptoms pointing towards a PDPH. continue monitor and treat hypertension. R/O any infection( Sinusitis) since patient had the flu a week ago.
--- NOTE | 2019-11-11 21:14 | PN ---
Post Note - Post Date of Delivery: 11/09/19 Vital Signs: Vital Signs - 24 hr 11/10/19 11/11/19 11/11/19 21:23 05:55 09:00 Temperature 98.1 F 98.1 F 97.7 F Pulse Rate 69 57 L 63 Respiratory 20 20 20 Rate Blood Pressure 155/98 161/93 141/87 11/11/19 11/11/19 11/11/19 11:45 14:22 17:50 Temperature 98.4 F Pulse Rate 65 68 68 Respiratory 20 18 20 Rate Blood Pressure 148/98 175/85 H 128/78 11/11/19 11/11/19 18:10 21:00 Temperature 98.6 F Pulse Rate 69 79 Respiratory 20 18 Rate Blood Pressure 166/96 126/75 Labs: Laboratory Results - last 24 hr 11/11/19 11/11/19 11/11/19 07:35 07:35 17:10 WBC 8.5 RBC 4.45 Hgb 9.9 L Hct 31.1 L MCV 70.0 L MCH 22.2 L MCHC 31.7 L RDW 15.2 Plt Count 138 MPV 10.3 Neutrophils % No Result Required. Lymphocytes % No Result Required. Platelet Estimate Slt decrease Platelet Comment Giant platelets Retic Count 1.61 H D Uric Acid 5.6 GGT 51 AST 45 H ALT 46 U Random Total Protein 43.7 H Urine Creatinine 35.0 Protein/Creatinin Ratio 1.2 - Subjective Subjective: No Complaints - Objective Afebrile: Yes Breast: Not engorged Abdomen: Soft, Non-tender Uterus: Fundus firm Vagina: Scant lochia Extremities: Non-tender - Assessment/Plan (1) Post-dates Assessment: S/P Normal , Other (gestational hypertension) Plan: Other ( renal consult appreciated will rx procardia 30mg XL with Labetalol 200mg TID BP Q 4 hr)
[2019-11-11] MEDS ORDERED: guaiFENesin/D-METHORPHAN HB 10 ML UNIT-DOSE CUPS PO PRN (21:20)
[2019-11-12] MEDS: LABETALOL HCL 200 MG TABLET (FP) PO SCH (06:16)
[2019-11-12 08:05] LABS: BASO % 0.3 % (0-2.0); EOS % 0.5 % (0-4.5); HEMATOCRIT 31.3 % (32.4-45.2); HEMOGLOBIN 9.8 GM/dL (10.7-15.3); LYMPH % 23.5 % (8-40); MCH 22.1 pg (25.7-33.7); MCHC 31.4 g/dl (32.0-36.0); MEAN CELL VOLUME 70.4 fl (80-96); MEAN PLT VOLUME 10.5 fl (7.5-11.1); MONO % 5.9 % (3.8-10.2); NEUT % 69.8 % (42.8-82.8); PLATELET COUNT 186 K/MM3 (134-434); RBC 4.45 M/mm3 (3.60-5.2); RDW 15.2 % (11.6-15.6); WHITE BLOOD COUNT 8.4 K/mm3 (4.0-10.0)
--- NOTE | 2019-11-12 08:05 | DS ---
Physical Exam-[employer] Vital Signs: Vital Signs Temperature 98.6 F 11/11/19 21:00 Pulse Rate 77 11/12/19 06:00 Respiratory Rate 18 11/12/19 06:00 Blood Pressure 141/83 11/12/19 06:00 O2 Sat by Pulse Oximetry (%) 98 11/11/19 21:00 Constitutional: Yes: Well Nourished, No Distress Gastrointestinal: Yes: WNL, Soft ....Post : Yes: Uterus firm, Uterus non-tender Musculoskeletal: Yes: WNL Extremities: Yes: WNL Neurological: Yes: WNL, Alert, Oriented Labs: CBC, BMP 11/09/19 11:37 Delivery - Delivery Vaginal Delivery: No Problems (Pt delivered without complications no nuchal cord ) Type of Anesthesia: Epidural Episiotomy/Laceration: None EBL (cc): 300 Delivery, Single - Stages of Labor Date 1st Stage Initiatied: 11/09/19 Time 1st Stage Initiated: 08:00 Date 2nd Stage Initiated: 11/09/19 Time 2nd Stage Initiated: 16:30 Date of Delivery: 11/09/19 Time of Delivery: 16:40 Time Placenta Delivered: 16:45 Placenta: Yes: Spontaneous - Condition of [employer] [id number] Present: No Infant Gender: Female Weight: 7 lb Position: OA Total Hours ROM (Hrs/Mins): 2Hrs/5Mins - 1 Minute Total Score: 8 5 Minutes Total Score: 9 - Feeding Plan Initial Plan: Exclusive throughout hospitalization Discharge Summary Problems reviewed: Yes Reason For Visit: LABOR ADMISSION Current Active Problems Gestational hypertension (Acute) NVD (normal vaginal delivery) (Acute) Post-dates (Acute) Procedures: Principal: Normal vaginal delivery Hospital Course: Gestational Hypertension elevated BP Condition: Good - Instructions Diet, Activity, Other Instructions: Physical activity Resume your normal everyday activity as tolerated no heavy lifting or exercise until seen by your surgeon. You may walk unlimited adam of and climb stairs. You may resume driving the car when you feel safe and comfortable behind the wheel. No sexual activity as instructed. Wound care If you have a bandage, leave it on, and keep dry for 48-72 hours. After that time discard the outer bandage. If they are tapes on the skin under the out of bandage leave them in place. They will peel off in the next 7 to 10 days. Do Not Peel them off. You may shower the day after surgery. If there are tapes present on the skin, you may shower over them. Diet There are no dietary restrictions. Eat healthy, high-fiber foods. Drink 6 to 8 glasses of liquid each day. This will assist in keeping your bowels are regular. Pain management You may take Tylenol or acetaminophen or Ibuprofen (for example, Motrin, Advil etc.) from my pain prescription medication is ordered should be taken as prescribed for moderate to severe pain. Call MD for any of the following: Severe pain not relieved by medication Fever of 101 or higher Excessive bleeding or drainage on dressing Inability to urinate Referrals: Lorelei Wayne MD [Staff Physician] - Disposition: HOME - Home Medications Comprehensive Discharge Medication List: Ambulatory Orders Vitamins (Sjr) - 1 tab PO DAILY 11/04/19 Ascorbic Acid [Vitamin C] 500 mg PO PRN 11/09/19 Labetalol HCl [Normodyne -] 200 mg PO TID #60 tablet 11/12/19 Nifedipine ER [Procardia Xl -] 30 mg PO DAILY #30 tab.er.24 11/12/19
[2019-11-12] MEDS: NIFEdipine E.R. 30 MG TABLET (FP) PO SCH (10:37)
[2019-11-12 11:43] VITALS: PULSE 78; TEMP 98.3
[2019-11-12 11:44] VITALS: BP 148/90
[2019-11-12 12:29] LABS: PLATELET ESTIMATE NORMAL
== END 2019-11-12 12:00 | disposition home or self-care (01) | DRG 806 ==
LOC: JDEL 10:55 → JLDR 11:20 → J3W 20:40
PROVIDERS: ADMIT Obstetrics & Gynecology; ATTEND Obstetrics & Gynecology
PROC: 10E0XZZ Delivery of Products of Conception, External Approach (ICD-10-PCS; principal; 2019-11-09)
DX: O48.0 Post-term pregnancy (principal); O99.113 Other diseases of the blood and blood-forming organs and certain disorders involving the immune mechanism complicating pregnancy, third trimester; Z37.0 Single live birth; Z3A.40 40 weeks gestation of pregnancy; O13.3 Gestational [pregnancy-induced] hypertension without significant proteinuria, third trimester; O99.013 Anemia complicating pregnancy, third trimester; D69.6 Thrombocytopenia, unspecified
CPT/HCPCS: 36415; 59409; 80048; 82570; 82977; 83010; 84156; 84450; 84460; 84550; 85025; 85044; 85610; 85730; 86593; 86850; 86900; 86901; 87389